=== PATIENT | male | born 1960 | race Caucasian/White ===

== ENCOUNTER 2020-04-29 07:14 | Day surgery (SDC) | payer OTHER, SELFPAY ==
[~2020-04-29] VITALS: Ht 177.8 cm; Wt 104.3 kg
[2020-04-29] MEDS ORDERED: LIDOCAINE 2% 100 MG/5 ML UJET TP ONE (09:10)
[2020-04-29] MEDS ORDERED: fentaNYL citrate 0.05 MG/ML VIAL ONE (09:10)
[2020-04-29] MEDS ORDERED: MIDAZOLAM 5 MG/5 ML VIAL ONE (09:28)
[2020-04-29] MEDS ORDERED: fentaNYL citrate 0.05 MG/ML VIAL IVP ONE (09:55)
[2020-04-29] MEDS ORDERED: MIDAZOLAM 2 MG/2 ML VIAL IVP ONE (09:55)
== END 2020-04-29 11:00 | disposition home or self-care (01) ==
LOC: MOR 07:14 → MFCC 07:15 → MOR 11:00
PROVIDERS: ATTEND Internal Medicine Gastroenterology
DX: K52.9 Noninfective gastroenteritis and colitis, unspecified (principal); K50.10 Crohn's disease of large intestine without complications; I10 Essential (primary) hypertension; E66.9 Obesity, unspecified; Z90.89 Acquired absence of other organs; Z79.899 Other long term (current) drug therapy; Z68.32 Body mass index [BMI] 32.0-32.9, adult; Z98.0 Intestinal bypass and anastomosis status
CPT/HCPCS: 45380; 87426; J2250; J3010; 88305